=== PATIENT | female | born 1945 | race Caucasian/White ===

== ENCOUNTER 2022-08-29 15:35 | Outpatient (CLI) | payer MEDICARE, OTHER ==
[2022-08-29 16:14] VITALS: BP 144/94
--- NOTE | 2022-08-29 16:14 | SLEEP CARE CONSULTATION ---
Information from patient questionnaire entered by Lani Antunez. I have reviewed and concur with the information entered by Lani Antunez. This document represents the service I personally performed and the decisions made by me, Tressa Leary ARNP. History of Present Illness Service Date and Time: 08/29/2022 1535 Reason for Visit: New patient, Previously diagnosed sleep apnea, sleep apnea on CPAP therapy Accompanied by: Spouse Chief Complaint: reports: Other (TRANSFER) Date of Onset: 20 years Usual bedtime: 10-11PM Time it takes to fall asleep: 30MIN Observed to quit breathing while asleep: Yes Number of times waking at night: 1 Reasons for waking at night: reports: Bathroom Toss, Turn, or Twitch while sleeping: No Recalls having dreams: No Usually gets out of bed at: 9AM Feels refreshed in the morning: Yes Morning headache: No Sleepy or fatigued during the day: Yes Ever fallen asleep while driving: No Takes day naps: Yes Dreams during day naps: No Prior sleep studies: Yes Year and Where: 20 YRS AGO [facility] Additional HPI information: MATTHEW NAIK was previously diagnosed to have severe, AHI 53, obstructive sleep apnea-hypopnea syndrome and returned today with spouse to establish care for CPAP therapy. She was diagnosed in 04/12/2020 at [facility]. - Parasomnia Symptoms Ever been unable to move upon waking from sleep: No Walks in sleep: No Talks in sleep: No Ever acted out dreams in sleep: No Ever felt weak in the knees when startled or emotional: No Bothered by creepy, crawly, restless sensations in legs: No Problems with memory or concentration: No CPAP Compliance Data - Data Reviewed with Patient Average duration of nightly device use: 10 hours 39 minutes Compliance rate %: 100 (30/30 days used) Current pressure setting (cmH2O): 6-14 Average residual AHI: 1.5 Central apnea: 0.1 Obstructive apnea: 0.9 Hypopnea: 0.4 Average large leak: 0 minutes Compliance data discussion: Patient has a Dreamstation 2 that she has had for almost a year. She is with [facility] for her supplies. She is using a nasal pillows mask. Subjective Patient concerns: denies: aerophagia, mask discomfort, air blowing in eyes, mask leak noise, condensation in mask/hose, nasal congestion, dry mouth, nose, throat, epistaxis Observed to snore while using device: No Current pressure setting perceived as: comfortable On therapy, patient: reports: sleeping better, awakening more refreshed, being more awake and alert during the day, more rested overall. denies: drowsiness while driving Initial [place] Sleepiness Scale score: 2 (08/29/22) Past Medical History Past Medical History: reports: GERD Social History The patient's occupation is a RE. Patient is and lives in [place]. Have you smoked in the past 12 months: No Years of smokin Quit date: 1977 Alcohol use: Yes Alcohol amount and frequency: 2-3 GLASSES A WEEK Caffeine use: Yes Caffeine amount and frequency: 2 SODAS A DAY Family History Family history of sleep disordered breathing: No Allergies and Home Medications Known drug allergies: Yes (penicillin) Drug allergies reviewed: Yes Home medication list reviewed: Yes Allergy and home medication list: Medications: Omeprazole 20 mg daily Simvastatin Review of Systems Weight gain over past 5 years: 5 Cardiovascular: denies: high blood pressure Urinary: reports: frequency Neurological: denies: headaches Psychiatric: denies: anxiety, depression Ear/Nose/Throat: reports: tonsillectomy Endocrine: denies: thyroid disease Immunologic: reports: sneezing Physical Exam Vital signs obtained and entered by: LANI Armando MA Blood Pressure: 144/94 (LEFT ARM) Cuff size: regular Heart Rate: 77 O2 Saturation: 97 Height: 5 ft Weight: 152 lb Body Mass Index: 29.7 BMI Classification: Overweight Neck circumference: 14.25 Impression and Plan 1. Obstructive Sleep Apnea-Hypopnea Syndrome, severe, with good treatment compliance and good apnea control. On CPAP therapy, the patient has better sleep quality and is more rested overall. Patient does not have a copy of her last sleep study and we were unable to obtain one from her last sleep provider. She thinks she may have a copy at home. We discussed that if unable to obtain a copy of her last sleep study we will need to get a verifying sleep study of her diagnosis and severity. I reviewed notes from her last sleep care provider which noted that she has severe obstructive sleep apnea with an AHI of 53. Patient's apnea severity and rationale for treatment to reduce apnea, improve sleep quality and reduce cardiovascular and cerebrovascular events was reviewed. I also reviewed the benefit of consistent device use of CPAP for gastric reflux. Patient is going out of town for 2 months at the end of August. If we can get a sleep study done before she leaves that would be good but most likely we will have to touch base with her when she gets back into town. I will try to update her supplies with her DME, [facility]. 2. Overweight, unspecified. Currently patients BMI is 29.7. Obesity increases the risk of apnea, CPAP pressure requirements and overall health risks especially cardiovascular and diabetes. Thus patient is advised to lose weight. * Continue auto CPAP pressure at 6-14 cmH2O * PSG to verify diagnosis and severity if unable to obtain copy of sleep study * Update supplies * Notify me if snoring with mask or feeling that the pressure is too much or too little * Attempt to lose weight * Call this office if any problems using CPAP * Return for follow up after sleep study, or sooner if concerns arise Counseling Topics: Spare mask, Weight loss health impact Visit Type: In Office Time Spent with Patient (minutes): 27 Provider Statement: I spent 100% of the Face to Face Visit with the patient with greater than 50% spent counseling the patient and coordination of care.
== END 2022-08-29 15:36 | disposition home or self-care (01) ==
LOC: SC 15:35
PROVIDERS: ATTEND Nurse Practitioner Family
DX: G47.33 Obstructive sleep apnea (adult) (pediatric) (principal); E66.3 Overweight; Z68.29 Body mass index [BMI] 29.0-29.9, adult
CPT/HCPCS: 99202; G0463; 99212

== ENCOUNTER 2024-03-05 15:04 | Outpatient (CLI) | payer MEDICARE, OTHER ==
--- NOTE | 2024-03-05 15:40 | Sleep Patient Instructions ---
Sleep Center Visit Summary - Patient Visit Information Reason for Visit: Annual follow-up - Patient Instructions Additional Instructions: You will continue with CPAP therapy with pressure set at 6-14 cmH2O. A supply prescription will be updated with your DME supplier. We encourage you to continue to try to lose weight. Please follow up with the sleep care office in 1 year. - Clinic Information Contact: [facility] [address] [place] [address] [email or web address] T: [phone]
--- NOTE | 2024-03-05 16:04 | SLEEP CARE CONSULTATION ---
Information from patient questionnaire entered by Casper Polk. I have reviewed and concur with the information entered by Casper Polk. This document represents the service I personally performed and the decisions made by , Tressa Leary ARNP. History of Present Illness Service Date and Time: 03/05/2024 1504 Previous diagnosis: Severe, Obstructive Sleep Apnea-Hypopnea Syndrome AHI: 53 Reason for follow up: annual (Last seen 02/2023) Accompanied by: Spouse Equipment type: CPAP (Dreamstation 2) Equipment obtained from: Other ([facility]; getting supplies) Mask style: Nasal pillows Mask brand: Resmed (Airfit P10, medium cushion) Backup mask available: Yes Last cushion change: 1 week Prior sleep studies: Yes Year and Where: 20 YRS AGO [facility] [place] additional information: MATTHEW NAIK was diagnosed to have severe, AHI 53, obstructive sleep apnea- hypopnea syndrome and returned today with spouse for CPAP therapy annual follow- up. Sleep Study - Results Prior sleep studies: Yes Year and Where: 20 YRS AGO [facility] CPAP Compliance Data - Data Reviewed with Patient Average duration of nightly device use: 10 h 18 mins Compliance rate %: 100 (180/180 days used) Current pressure setting (cmH2O): 6 - 14 Humidity settin Heated hose settin Average residual AHI: 2.5 Central apnea: 0.3 Obstructive apnea: 1.5 Hypopnea: 0.7 Average large leak: 2 sec Subjective Patient concerns: denies: aerophagia, mask discomfort, air blowing in eyes, mask leak noise, condensation in mask/hose, nasal congestion, dry mouth, nose, throat, epistaxis Observed to snore while using device: No Current pressure setting perceived as: comfortable On therapy, patient: reports: sleeping better, awakening more refreshed, being more awake and alert during the day, more rested overall. denies: drowsiness while driving Initial [place] Sleepiness Scale score: 2 (08/29/22) Current [place] Sleepiness Scale score: 1 (03/04/24) Allergies and Home Medications Known drug allergies: Yes (Penicillin) Drug allergies reviewed: Yes Home medication list reviewed: Yes (blood pressure med, not sure of name) Allergy and home medication list: Allergies caffeine Allergy (Verified 03/05/24 15:31) Edema Penicillins Allergy (Verified 03/05/24 15:31) Edema Home Medications Omeprazole Magnesium See Rx Instructions .ROUTE .COMPLEX 08/29/22 [History] Simvastatin [Zocor] See Rx Instructions .ROUTE .COMPLEX 08/29/22 [History] Review of Systems Review of systems same as previous: No (high blood pressure) Physical Exam Vital signs obtained and entered by: Tressa Rose NP Blood Pressure: 141/87 Cuff size: long (left arm) Heart Rate: 79 O2 Saturation: 95 Height: 5 ft Weight: 139 lb 6.4 oz Weight change since last visit: 15 lb loss Body Mass Index: 27.2 BMI Classification: Overweight Impression and Plan 1. Obstructive Sleep Apnea-Hypopnea Syndrome, severe, with good treatment compliance and good apnea control. On CPAP therapy, the patient has better sleep quality and is more rested overall. Patient has significant improvement of their sleep apnea and is satisfied with current CPAP therapy. Patient denies problems with oral dryness, nasal congestion, epistaxis, skin irritation or aerophagia. Patient's apnea severity and rationale for treatment to reduce apnea, improve sleep quality and reduce cardiovascular and cerebrovascular events was reviewed. I also reviewed the benefit of consistent device use of CPAP for hypertension and gastric reflux. 2. Overweight, unspecified. Currently patients BMI is 27.2. She has lost weight. Obesity increases the risk of apnea, CPAP pressure requirements and overall health risks especially cardiovascular and diabetes. Thus patient is advised to continue to try to lose weight. * Continue auto CPAP pressure at 6-14 cmH2O * Update supply prescription * Notify me if snoring with mask or feeling that the pressure is too much or too little * Attempt to lose weight * Call this office if any problems using CPAP * Return for follow up in 12 months, or sooner if concerns arise Counseling Topics: Weight loss health impact Prescriptions: Device supplies Follow up with Sleep Care in: 1 year Visit Type: In Office Time Spent with Patient (minutes): 21 Provider Statement: I spent 100% of the Face to Face Visit with the patient with greater than 50% spent counseling the patient and coordination of care.
[2024-03-05 16:20] VITALS: BP 141/87; O2SAT 95
== END 2024-03-05 15:05 | disposition home or self-care (01) ==
LOC: SC 15:04
PROVIDERS: ATTEND Nurse Practitioner Family
DX: G47.33 Obstructive sleep apnea (adult) (pediatric) (principal); E66.3 Overweight; Z68.27 Body mass index [BMI] 27.0-27.9, adult
CPT/HCPCS: 99213; G0463; 99212